=== PATIENT | female | born 1990 | race Two or more races ===

== ENCOUNTER → 2017-07-22 13:58 | Outpatient (CLI) | payer OTHER, SELFPAY ==
[2017-07-22 15:18] LABS: Thyroid Stim Hormone (TSH) 1.47 uIU/mL (0.358-3.74)
[2017-07-26 09:28] LABS: Prolactin 7.3 ng/mL
== END ==
PROVIDERS: Family Provider Family Medicine; PCP Family Medicine; Visit Provider Obstetrics & Gynecology
DX: O92.6 Galactorrhea (principal)
CPT/HCPCS: 36415; 84146; 84443